=== PATIENT | female | born 1975 | race Caucasian/White ===

== ENCOUNTER 2017-08-07 20:47 | Emergency (ER) | payer SELFPAY ==
[~2017-08-07] VITALS: Ht 165.1 cm; Wt 65.0 kg
[2017-08-08 06:21] VITALS: BP 101/62
== END 2017-08-08 08:14 | disposition home or self-care (01) ==
LOC: ER 21:08
DX: J06.9 Acute upper respiratory infection, unspecified (principal); N64.4 Mastodynia; I10 Essential (primary) hypertension; F32.9 Major depressive disorder, single episode, unspecified; F41.9 Anxiety disorder, unspecified; F17.200 Nicotine dependence, unspecified, uncomplicated; Z59.0 Homelessness
CPT/HCPCS: 93005; 99283; Z7610